=== PATIENT | male | born 2000 | race Caucasian/White ===

== ENCOUNTER 2024-04-29 15:47 | Emergency (ER) | payer OTHER, SELFPAY ==
--- NOTE | ~2024-04-29 | CT_ITS ---
EXAMINATION: CT abdomen pelvis w con DATE: 04/29/2024 20:50 INDICATION: Left abdominal pain. TECHNIQUE: Computed tomography (CT) of the abdomen and pelvis was performed with 100 mL Omnipaque 350 intravenous contrast. Automated exposure control and iterative reconstruction technique were employe d. The dose-length product was 1105.61 mGy-cm. COMPARISON: None. FINDINGS: The visualized portions of the lung bases are clear without pneumonia or pleural effusion. The heart size is normal. No pericardial effusion. The liver, gallbladder, spleen, pancreas, adrenal glands, and kidneys are normal. There are no dilated loops of bowel. The appendix is normal. There ar e no pathologically enlarged lymph nodes. There is no free intraperitoneal fluid. There is lumbar lev ocurvature is noted. IMPRESSION: 1. No etiology for the patient's symptoms. Reviewed, dictated and finalized at location E.
[2024-04-29 16:22] VITALS: BP 137/71; PULSE 120; RESP 16; TEMP 36.5; O2SAT 100
[2024-04-29 20:06] VITALS: BP 135/70; PULSE 98; RESP 16; O2SAT 99
[2024-04-29 20:09] LABS: Basophils Absolute Auto 0.1 K/mm3 (0.0-0.1); Basophils Percent Auto 0.5 % (0.2-1.2); Eosinophils Percent Auto 0.4 % (0-4.4); Hematocrit 45.5 % (42.0-52.0); Hemoglobin 15.5 g/dL (14.0-18.0); Immature Granulocyte Absolute 0.03 K/mm3 (0.00-0.031); Immature Granulocyte Percent A 0.3 % (0-0.5); Lymphocytes Absolute Auto 2.35 K/mm3 (0.9-3.2); Lymphocytes Percent Auto 21.9 % (18.3-44.2); Mean Corpuscular HGB Conc 34.1 g/dl (32-36); Mean Corpuscular Hemoglobin 30.4 pg (26-34); Mean Corpuscular Volume 89.2 fl (80-100); Mean Platelet Volume 9.3 fl (7.4-10.4); Monocytes Absolute Auto 0.5 K/mm3 (0.1-0.6); Neutrophils Absolute Auto 7.7 K/mm3 (1.3-6.7); Neutrophils Percent Auto 71.9 % (45.5-73.1); Platelet Count Result 318 k/mm3 (150-375); White Blood Count 10.7 K/mm3 (4.5-10.0)
[2024-04-29 20:18] LABS: Alanine Aminotransferase 35 U/L (6-50); Alkaline Phosphatase 48 U/L (38-126); Anion Gap 14 mmol/L (4-12); Aspartate Amino Transferase 27 U/L (17-59); Bilirubin,Total 1.1 mg/dL (0.2-1.3); Blood Urea Nitrogen 10 mg/dL (9-20); Calcium 9.6 mg/dL (8.4-10.2); Carbon Dioxide 25 mmol/L (22-30); Chloride 101 mmol/L (98-107); Estimated CRCL calculation 153 ml/min; Estimated Glomerular Filt Rate > 60; Glucose 104 mg/dL (65-110); Lipase 102 U/L (23-300); Potassium 3.8 mmol/L (3.4-5.0); Sodium 140 mmol/L (137-145)
--- NOTE | 2024-04-30 00:59 | ED.ABDPAIN ---
HPI - Abdominal Pain General Chief Complaint: Abdominal Pain Stated Complaint: abd pain Time Seen by Provider: 04/29/24 19:52 History of Present Illness HPI narrative: Patient reports pain to his left lower quadrant, started after he was hiking about a week ago, is intermittent, no nausea, vomiting, he does report some constipation. It is slightly painful to touch, he has no dysuria Related Data Allergies Allergy/AdvReac Type Severity Reaction Status Date / Time No Known Allergies Allergy Verified 04/29/24 16:25 Review of Systems Review of Systems: All systems reviewed & are unremarkable except as noted in HPI and below PMFSH Family History Family History (Updated 06/18/14 @ 07:13 by DOCTOR UNKNOWN) Mother Asthma Social History Social History Smoking status: Never smoker Alcohol intake: never Exam Narrative: EXAMINATION OF ORGAN SYSTEMS/BODY AREAS: Constitutional: Vital signs per nursing GENERAL:[No acute distress, non-toxic appearing.] HEAD: Normal with no signs of head trauma. EYES: EOMI, conjunctiva normal ENT: Hearing grossly intact LUNGS: Nonlabored breathing. HEART: [Regular rate and rhythm] ABD: [Soft], [ slightly tender to palpation left lower quadrant] EXT: Normal range of motion SKIN: [No rashes or lesions.] NEURO: [Alert and oriented x 3. No gross focal sensory or strength deficits.] PSYCH: Normal affect Course Vital Signs Vital signs: Vital Signs Temperature 97.7 F 04/29/24 16:22 Pulse Rate 120 H 04/29/24 16:22 Respiratory Rate 16 04/29/24 16:22 Blood Pressure 137/71 04/29/24 16:22 Pulse Oximetry 100 04/29/24 16:22 Oxygen Delivery Room Air 04/29/24 16:22 Temperature 97.7 F 04/29/24 16:22 Pulse Rate 98 04/29/24 20:06 Respiratory Rate 16 04/29/24 20:06 Blood Pressure 135/70 04/29/24 20:06 Pulse Oximetry 99 04/29/24 20:06 Oxygen Delivery Room Air 04/29/24 16:22 MDM - Abdominal Pain MDM Narrative Medical decision making narrative: Electronic medical record was reviewed. Patient presented to the ED with complaint of [abdominal pain]. Vitals initially tachycardic that resolved. Physical exam revealed [tenderness to palpation in left lower quadrant abdomen]. Based on the patient's history and physical exam, my differential includes but is not limited to [gastroenteritis, kidney stone, MSK pain, constipation]. [IV access was established by nursing staff]. CBC, BMP, lipase, LFTs, bilirubin and alk phos were obtained. Labs were pertinent for essentially normal labs. [Decision was made to obtain a CT-abdomen to evaluate for acute abdominal process. CT-abdomen per radiology interpretation is unremarkable for acute intra-abdominal process, no signs of hydronephrosis, cholecystitis, appendicitis.] on re-evaluation, patient still appears quite comfortable. There were no witnessed episodes of vomiting in the emergency department. They are not complaining of any new abdominal pain. Repeat examination did not show any significant guarding or rebound. No new tenderness. At this time I do not feel there is any further emergent treatment to be provided. The patient was given strict return precautions, if they are to develop any worsening abdominal pain, vomiting, or blood in the vomit they are to return to the emergency department immediately. Patient verbally acknowledges understanding these directions. [The patient was informed of the above diagnostic test findings.] No further workup is necessary at this time. They will be discharged home [with prescriptions]. They were advised to follow-up with [their PCP] in 2 days. The patient feels that this is appropriate medical decision making and verbalizes an understanding of the discharge instructions. DISPOSITION: [Home] Lab Data 04/29/24 20:01 04/29/24 20:01 Labs: Lab Results 04/29/24 Range/Units 20:01 WBC 10.7 H (4.5-10.0) K/mm3 RBC 5.10 (4.6-6.20) M
== END 2024-04-29 21:22 | disposition home or self-care (01) ==
PROVIDERS: Emergency Provider Emergency Medicine
DX: R10.32 Left lower quadrant pain (principal)
CPT/HCPCS: 36415; 74177; 80053; 83690; 85025; 99284; Q9967